=== PATIENT | male | born 1955 | race Two or more races ===

== ENCOUNTER 2022-02-08 11:40 | Emergency (ER) | payer OTHER ==
[~2022-02-08] VITALS: Ht 172.7 cm; Wt 68.0 kg
[2022-02-08] MEDS ORDERED: LOSARTAN POTASS50 MG PO (12:34)
[2022-02-08] MEDS ORDERED: LEVOTHYROXINE25 MC1 PO (12:34)
[2022-02-08] MEDS ORDERED: ATORVASTATIN CA40 MG PO (12:34)
== END 2022-02-08 14:59 | disposition home or self-care (01) ==
LOC: ER 11:40
DX: U07.1 COVID-19 (principal); I10 Essential (primary) hypertension

== ENCOUNTER 2022-04-30 12:31 | Emergency (ER) | payer OTHER ==
[~2022-04-30] VITALS: Ht 172.7 cm; Wt 72.6 kg
[~2022-04-30 12:31] MED LIST: ATORVASTATIN CA40 MG PO; LEVOTHYROXINE25 MC1 PO; LOSARTAN POTASS50 MG PO
== END 2022-04-30 16:32 | disposition home or self-care (01) ==
LOC: ER 12:31
DX: B34.8 Other viral infections of unspecified site (principal)

== ENCOUNTER → 2022-08-01 | Emergency (ER) | payer OTHER ==
[~2022-08-01] VITALS: Ht 167.6 cm; Wt 70.8 kg
[~2022-08-01] MED LIST changes: +TRAMADOL HCL E100 MG PO
== END | disposition home or self-care (01) ==
LOC: ER 11:52
DX: S22.32XA Fracture of one rib, left side, initial encounter for closed fracture (principal); S29.8XXA Other specified injuries of thorax, initial encounter; W10.0XXA Fall (on)(from) escalator, initial encounter; Y93.9 Activity, unspecified; Y92.9 Unspecified place or not applicable; Y99.9 Unspecified external cause status; E78.00 Pure hypercholesterolemia, unspecified; I10 Essential (primary) hypertension

== ENCOUNTER 2023-03-19 15:01 | Emergency (ER) | payer OTHER ==
[~2023-03-19] VITALS: Ht 172.7 cm; Wt 72.6 kg
[2023-03-19] MEDS ORDERED: HYDROCHLOROTH12.5 MG PO (15:47)
[2023-03-19 17:43] LABS: HEMATOCRIT 36.8 % (39.0-48.0); HEMOGLOBIN 12.8 g/dL (13-16.00); MEAN CELL VOLUME 90.2 fL (80.0-100.00); MEAN CORPUSCULAR HEMOGLOBIN 31.3 pg (27.00-32.0); MEAN CORPUSCULAR HGB CONC 34.7 g/dl (32.0-36.0); PLATELET COUNT 166 K/uL (150-450); RED BLOOD COUNT 4.07 M/uL (4.00-6.00)
[2023-03-19 18:03] LABS: CALCIUM 9.5 mg/dL (8.5-10.1); CREATININE SERUM 1.5 mg/dL (0.70-1.30); GFR 46.54; POTASSIUM 4.09 mEq/L (3.5-5.1)
== END 2023-03-19 20:51 | disposition home or self-care (01) ==
LOC: ER 15:01
PROVIDERS: General Practice
DX: J06.9 Acute upper respiratory infection, unspecified (principal); I10 Essential (primary) hypertension; Z20.822 Contact with and (suspected) exposure to COVID-19